=== PATIENT | male | born 1970 | race Two or more races ===

== ENCOUNTER 2025-03-08 10:54 | Observation (INO) | payer BC ==
[2025-03-08 13:52] LABS: MONOCYTE # 0.53 x10^3/uL (0.30-0.82); RDW 12.7 % (12.2-16.1)
[2025-03-08 13:53] LABS: ABSOLUTE IMMATURE GRANULOCYTES 0.05 x10^3/uL (0.0-0.031); BASOPHILS # 0.02 x10^3/uL (0.01-0.08); EOSINOPHIL % 0.5 % (0.8-7.0); EOSINOPHILS # 0.04 x10^3/uL (0.04-0.54); HEMATOCRIT 40.2 % (40.1-51.0); HEMOGLOBIN 12.8 g/dL (13.7-17.5); MCHC 31.8 g/dl (32.3-36.5); MEAN CELL VOLUME 90.1 fl (79.0-92.2); MONOCYTE % 6.8 % (5.3-12.2); PLATELET COUNT 153 x10^3/uL (163-337)
[2025-03-08] MEDS ORDERED: VANCOMYCIN HCL 1,500 MG in DEXTROSE 5%-WATER - 500 ML IVPB ONE (13:59)
[2025-03-08 14:14] LABS: POTASSIUM 3.9 mmol/L (3.5-5.1)
[2025-03-08] MEDS: CEFTRIAXONE 1 GM in DEXTROSE 5%-WATER - 100 ML IVPB ONE (14:16)
[2025-03-08 14:17] LABS: BLOOD UREA NITROGEN 13.2 mg/dL (7-18); CALCIUM 8.6 mg/dL (8.5-10.1); MAGNESIUM 2.1 mg/dL (1.8-2.4)
[2025-03-08 14:21] LABS: CREATININE 0.8 mg/dL (0.55-1.3)
[2025-03-08 14:22] LABS: BILIRUBIN,TOTAL 0.6 mg/dL (0.2-1); TOT PROT 5.9 g/dl (6.4-8.2)
[2025-03-08] MEDS ORDERED: PIPERACILLIN/TAZOB 4.5 GM 4.5 GM/100 ML BAG IVPB ONE (15:20)
[2025-03-08] MEDS ORDERED: AZITHROMYCIN IVPB 500 MG/250 ML BAG IVPB ONE (15:20)
[2025-03-08] MEDS: AZITHROMYCIN IVPB 500 MG in DEXTROSE 5%-WATER - 250 ML IVPB ONE (15:31)
[2025-03-08 15:58] LABS: HCV DIAGNOSTIC IN-HOUSE W/RFLX NON-REACTIVE (NONREACTIVE); HIV INTERPRETATION NEGATIVE (NEGATIVE)
[2025-03-08] MEDS: PIPERACILLIN/TAZOB 4.5 GM 4.5 GM in DEXTROSE 5%-WATER 100 ML IVPB ONE (16:04)
[2025-03-08] MEDS ORDERED: FUROSEMIDE 40 MG/4 ML INJECTABLE VIAL ONE (16:08)
[2025-03-08 16:12] LABS: N-TERMINAL BNP 3320.6 pg/ml (5-125)
[2025-03-08] MEDS: FUROSEMIDE 40 MG/4 ML INJECTABLE VIAL IVPUSH ONE (16:27)
[2025-03-08] MEDS: VANCOMYCIN HCL IN 5 % DEXTROSE 1,500 MG/300 ML BAG IVPB ONE (16:27)
[2025-03-08] MEDS ORDERED: INSULIN ASPART SLIDING SCALE (NOVOLOG) 1 VIAL SQ ONE (17:21)
[2025-03-08] MEDS: INSULIN ASPART SLIDING SCALE (NOVOLOG) 1 VIAL SQ SCH (17:26)
[2025-03-08 18:28] VITALS: BMI 29.4
[2025-03-09 08:14] LABS: HEMATOCRIT 40.9 % (40.1-51.0); HEMOGLOBIN 13.1 g/dL (13.7-17.5); MEAN CELL VOLUME 89.3 fl (79.0-92.2); MEAN PLT VOLUME 13.3 fl (9.4-12.4); PLATELET COUNT 160 x10^3/uL (163-337); RDW 12.8 % (12.2-16.1)
[2025-03-09 08:41] LABS: POTASSIUM 3.9 mmol/L (3.5-5.1)
[2025-03-09 08:50] LABS: BLOOD UREA NITROGEN 15.9 mg/dL (7-18); CALCIUM 8.8 mg/dL (8.5-10.1); MAGNESIUM 2.1 mg/dL (1.8-2.4)
[2025-03-09 08:53] LABS: CREATININE 1.1 mg/dL (0.55-1.3); PHOSPHOROUS 4.7 mg/dL (2.5-4.9)
[2025-03-09 08:55] LABS: BILIRUBIN,TOTAL 0.8 mg/dL (0.2-1)
[2025-03-09] MEDS: LISINOPRIL 10 MG TABLET PO SCH (09:45)
[2025-03-09] MEDS: ENOXAPARIN NA (PORCINE) 40 MG/0.4 ML DISP.SYRIN SQ SCH (09:45)
[2025-03-09 12:05] VITALS: TEMP 98.2
[2025-03-09] MEDS: CARVEDILOL 3.125 MG TABLET (FP) PO SCH (13:50)
[2025-03-09 16:39] VITALS: BP 134/96; PULSE 84; RESP 18
== END 2025-03-09 16:56 | disposition short-term general hospital (02) ==
LOC: JER 10:54 → JERBED 14:03 → UNDOADMOB 14:03 → INTOOBSV 14:03 → JERBED 15:14 → J7W 17:50
PROVIDERS: ADMIT Internal Medicine; ATTEND Physician Assistant
PROC: 3E03329 Introduction of Other Anti-infective into Peripheral Vein, Percutaneous Approach (ICD-10-PCS; principal; 2025-03-08)
PROC: 3E023GC Introduction of Other Therapeutic Substance into Muscle, Percutaneous Approach (ICD-10-PCS; 2025-03-08)
PROC: 3E033GC Introduction of Other Therapeutic Substance into Peripheral Vein, Percutaneous Approach (ICD-10-PCS; 2025-03-08)
PROC: 3E013VG Introduction of Insulin into Subcutaneous Tissue, Percutaneous Approach (ICD-10-PCS; 2025-03-08)
DX: I50.20 Unspecified systolic (congestive) heart failure (principal); I50.30 Unspecified diastolic (congestive) heart failure; J18.9 Pneumonia, unspecified organism; R94.31 Abnormal electrocardiogram [ECG] [EKG]; E11.9 Type 2 diabetes mellitus without complications
CPT/HCPCS: 0241U-QW; 36415; 71046-TC-FY; 80053; 82962; 83735; 83880; 84100; 84484; 85025; 85027; 86803; 87389; 87899; 93005; 93010; 93306-TC; 99285-25; G0378